=== PATIENT | male | born 1980 | race Caucasian/White ===

== ENCOUNTER 2018-01-12 10:57 | Emergency (ER) | payer MEDICARE, MEDICAID ==
[~2018-01-12 10:57] MED LIST: AMOX-362 PO; ASCO-191 PO; AZI250 PO; BENZ200C38 PO; CEPH500C24 PO; CHOL500016 PO; CLIN300C99 PO; COLACE; D3; FLUINH INH; FLUT16SP20 NS; HYDR-4309 PO; IBUP800T37 PO; LOR10 PO; LOR5 PO; LOR5/325 PO; MAGN100T2 PO; MAGN296S6 PO; MAGN400T36 PO; MAGN400T4 PO; MAGNESIUM; METH-542 PO; MULT-1287 PO; NAPR375T44 PO; OMEG500C7 PO; ONDA4TAB97 PO; PANT20TA27 PO; PANT40TA65 PO; PRED20TA6 PO; PROM-110 PO; TRA50 PO; TRAM-420 PO; TRAM100T22 PO; [UNRECOGNIZED DRUG - CODE] PO
--- NOTE | 2018-01-12 11:13 | ER Report ---
History and Physical Time Seen By MD: 11:04 Hx. of Stated Complaint: patient reports right flank pain since wednesday. he describes a burning and tingling sensation. patient denies difficulty with urination HPI/ROS CHIEF COMPLAINT: Right flank pain HISTORY OF PRESENT ILLNESS: Patient is a 37-year-old male who presents the ED with complaint of right flank pain that he has noted for the past 5 days. He states that the pain has been intermittent. He describes the pain as a burning type of pain into his back. He has noted some nausea but denies any vomiting. He also has had some diarrhea. Patient denies any fever. He has noted some slight dysuria but denies any hematuria or increased urinary frequency. He denies any penile discharge. Patient is not noting chest pain or shortness of breath. He denies any history of kidney stones in the past. He denies any previous abdominal surgeries. Patient states that he woke up with the pain this morning and decided to go to the ER for further evaluation. He was concerned that this may be related to him taking Protonix for the past 6 years. REVIEW OF SYSTEMS: Constitutional: No fever, no chills. Eyes: No discharge. ENT: No sore throat. Cardiovascular: No chest pain, no palpitations. Respiratory: No cough, no shortness of breath. Gastrointestinal: See history of present illness. Genitourinary: See history of present illness. Musculoskeletal: See history of present illness. Skin: No rashes. Neurological: No headache. Allergies: Coded Allergies: benztropine (Verified Allergy, Severe, FREAKS OUT AND GETS HIVES, 09/24/16) acetaminophen (Verified Adverse Reaction, Mild, MAKES HIM SICK TO STOMACH , 09/24/16) hydrocodone (Verified Adverse Reaction, Mild, MAKES HIM SICK TO STOMACH, ) oxycodone (Verified Adverse Reaction, Mild, MAKES HIM SICK TO STOMACH, 09/24) Uncoded Allergies: X RAY DYE (Allergy, Severe, SEIZURE, 06/11/07) ALL PSYCH MEDS (Allergy, Mild, GETS WORSE ON EVERYTHING THEY HAVE TRIED, ) Home Meds Active Scripts Ondansetron Hcl (ZOFRAN) 4 Mg Tablet, 4 MG PO Q8H for Nausea, #15 TAB 0 Refills Prov:HERON ALBRECHT MD 7/2/17 Naproxen (NAPROXEN) 375 Mg Tablet, 375 MG PO TID for PAIN, #21 TAB 0 Refills Prov:HERON ALBRECHT MD 02/21/17 Amoxicillin (AMOXICILLIN) 500 Mg Capsule, 1 CAP PO Q8H for infection, #30 CAPSULE Prov:AVRIL CERVANTES DO 09/24/16 Prednisone (PREDNISONE) 20 Mg Tablet, 20 MG PO QDAY for reduce inflammation, #5 Prov:AVRIL CERVANTES DO 09/24/16 Reported Medications [place]-3 Fatty Acids (FISH OIL) 500 Mg Capsule, 500 MG PO DAILY, CAPSULE 09/24/16 Multivitamin (MEN'S MULTI-VITAMIN) 1 Each Tablet, 1 EACH PO DAILY 05/28/16 Ascorbic Acid (VITAMIN C) 1,000 Mg Tablet, 1000 MG PO DAILY 05/28/16 Cholecalciferol (Vitamin D3) (VITAMIN D3) 5,000 Unit Capsule, 5000 UNIT PO DAILY , CAPSULE 05/28/16 Pantoprazole Sodium (PANTOPRAZOLE SODIUM) 20 Mg Tablet.dr, 20 MG PO QDAY, TAB.SR 05/28/16 Magnesium Oxide (MAGNESIUM OXIDE) 400 Mg Tablet, 400 MG PO QAM 05/28/16 Magnesium Citrate (MAGNESIUM CITRATE) 100 Mg Tablet, 100 MG PO QHS 05/28/16 Fluticasone Propionate (FLOVENT HFA) 110 Mcg Inha, 110 MCG INH PRN 08/15/15 Reviewed Nurses Notes: Yes Old Medical Records Reviewed: Yes Hx Smoking: No Smoking Status: Former Smoker Exposure to Second Hand Smoke?: Yes Hx Substance Use Disorder: No Hx Alcohol Use: No Constitutional Vital Sign - Last 24 Hours 01/12/18 11:01 Temp 97.9 Pulse 77 Resp 20 Pulse Ox 95 O2 Delivery Room Air Physical Exam General Appearance: The patient is alert, has no immediate need for airway protection and no signs of toxicity. Patient appears to be in no acute distress. Eyes: Pupils equal and round no pallor or injection. ENT, Mouth: Mucous membranes are moist. Respiratory: There are no retractions, lungs are clear to auscultation. Cardiovascular: Regular rate and rhythm. Gastrointestinal: No abdominal pain with palpation exam. Normal bowel sounds in all 4 quadrants. No rebound or guarding is present. There is right CVA area tenderness with percussion. Skin: Warm and dry, no rashes. Musculoskeletal: Neck is supple non tender. Extremities are nontender, nonswollen and have full range of motion. DIFFERENTIAL DIAGNOSIS: After history and physical exam differential diagnosis was considered for flank pain including but not limited to musculoskeletal causes, kidney stone, pyelonephritis, shingles, and intra-abdominal causes such as diverticulitis and appendicitis. Medical Decision Making Data Points Result Diagram: 01/12/18 1113 01/12/18 1113 Laboratory Hematology Test 01/12/18 11:00 01/12/18 11:13 Urine Color Yellow Urine Clarity Clear Urine pH 5.0 pH (4.8-9.5) Urine Specific [place] 1.018 Urine Protein Negative mg/dL (NEGATIVE) Urine Glucose (UA) Negative mg/dL (NEGATIVE) Urine Ketones Negative mg/dL (NEGATIVE) Urine Blood Negative (NEGATIVE) Urine Nitrite Negative (NEGATIVE) Urine Bilirubin Negative (NEGATIVE) Urine Urobilinogen Negative mg/dL (0.2-1.9) Urine Leukocyte Esterase Negative (NEGATIVE) Urine RBC None /HPF (0-2/HPF) Urine WBC <1 /HPF (0-5/HPF) Urine Squamous Epithelial Cells None /LPF (</=FEW) Urine Bacteria Negative /HPF (NONE-FEW) Urine Mucus None /HPF (NONE-FEW) Red Blood Count 5.64 M/uL (4.00-5.60) Mean Corpuscular Volume 84.3 fL (80.0-96.0) Mean Corpuscular Hemoglobin 29.7 pg (26.0-33.0) Mean Corpuscular Hemoglobin Concent 35.3 g/dL (32.0-36.0) Red Cell Distribution Width 12.7 % (11.5-14.5) Mean Platelet Volume 8.6 fL (7.2-11.1) Neutrophils (%) (Auto) 62.0 % (39.4-72.5) Lymphocytes (%) (Auto) 24.1 % (17.6-49.6) Monocytes (%) (Auto) 9.6 % (4.1-12.4) Eosinophils (%) (Auto) 3.1 % (0.4-6.7) Basophils (%) (Auto) 1.2 % (0.3-1.4) Nucleated RBC Relative Count (auto) 0.1 /100WBC Neutrophils # (Auto) 3.8 K/uL (2.0-7.4) Lymphocytes # (Auto) 1.5 K/uL (1.3-3.6) Monocytes # (Auto) 0.6 K/uL (0.3-1.0) Eosinophils # (Auto) 0.2 K/uL (0.0-0.5) Basophils # (Auto) 0.1 K/uL (0.0-0.1) Nucleated RBC Absolute Count (auto) 0.01 K/uL Sodium Level 139 mmol/L (137-145) Potassium Level 4.2 mmol/L (3.5-5.0) Chloride Level 103 mmol/L (98-107) Carbon Dioxide Level 25 mmol/L (22-30) Blood Urea Nitrogen 16 mg/dl (9-21) Creatinine 1.10 mg/dl (0.66-1.25) Glomerular Filtration Rate Calc > 60.0 Random Glucose 96 mg/dl (75-110) Calcium Level 9.3 mg/dl (8.4-10.2) Total Bilirubin 0.8 mg/dl (0.2-1.3) Aspartate Amino Transf (AST/SGOT) 28 U/L (0-35) Alanine Aminotransferase (ALT/SGPT) 39 U/L (0-56) Alkaline Phosphatase 89 U/L (0-126) Total Protein 7.7 gm/dl (6.3-8.2) Albumin 4.2 g/dl (3.5-5.0) Lipase 69 U/L (23-300) Chemistry Test 01/12/18 11:00 01/12/18 11:13 Urine Color Yellow Urine Clarity Clear Urine pH 5.0 pH (4.8-9.5) Urine Specific [place] 1.018 Urine Protein Negative mg/dL (NEGATIVE) Urine Glucose (UA) Negative mg/dL (NEGATIVE) Urine Ketones Negative mg/dL (NEGATIVE) Urine Blood Negative (NEGATIVE) Urine Nitrite Negative (NEGATIVE) Urine Bilirubin Negative (NEGATIVE) Urine Urobilinogen Negative mg/dL (0.2-1.9) Urine Leukocyte Esterase Negative (NEGATIVE) Urine RBC None /HPF (0-2/HPF) Urine WBC <1 /HPF (0-5/HPF) Urine Squamous Epithelial Cells None /LPF (</=FEW) Urine Bacteria Negative /HPF (NONE-FEW) Urine Mucus None /HPF (NONE-FEW) White Blood Count 6.1 k/uL (4.5-11.0) Red Blood Count 5.64 M/uL (4.00-5.60) Hemoglobin 16.8 g/dL (14.0-18.0) Hematocrit 47.5 % (42.0-52.0) Mean Corpuscular Volume 84.3 fL (80.0-96.0) Mean Corpuscular Hemoglobin 29.7 pg (26.0-33.0) Mean Corpuscular Hemoglobin Concent 35.3 g/dL (32.0-36.0) Red Cell Distribution Width 12.7 % (11.5-14.5) Platelet Count 250 K/uL (150-450) Mean Platelet Volume 8.6 fL (7.2-11.1) Neutrophils (%) (Auto) 62.0 % (39.4-72.5) Lymphocytes (%) (Auto) 24.1 % (17.6-49.6) Monocytes (%) (Auto) 9.6 % (4.1-12.4) Eosinophils (%) (Auto) 3.1 % (0.4-6.7) Basophils (%) (Auto) 1.2 % (0.3-1.4) Nucleated RBC Relative Count (auto) 0.1 /100WBC Neutrophils # (Auto) 3.8 K/uL (2.0-7.4) Lymphocytes # (Auto) 1.5 K/uL (1.3-3.6) Monocytes # (Auto) 0.6 K/uL (0.3-1.0) Eosinophils # (Auto) 0.2 K/uL (0.0-0.5) Basophils # (Auto) 0.1 K/uL (0.0-0.1) Nucleated RBC Absolute Count (auto) 0.01 K/uL Glomerular Filtration Rate Calc > 60.0 Calcium Level 9.3 mg/dl (8.4-10.2) Total Bilirubin 0.8 mg/dl (0.2-1.3) Aspartate Amino Transf (AST/SGOT) 28 U/L (0-35) Alanine Aminotransferase (ALT/SGPT) 39 U/L (0-56) Alkaline Phosphatase 89 U/L (0-126) Total Protein 7.7 gm/dl (6.3-8.2) Albumin 4.2 g/dl (3.5-5.0) Lipase 69 U/L (23-300) Urinalysis Test 01/12/18 11:00 Urine Color Yellow Urine Clarity Clear Urine pH 5.0 pH (4.8-9.5) Urine Specific [place] 1.018 Urine Protein Negative mg/dL (NEGATIVE) Urine Glucose (UA) Negative mg/dL (NEGATIVE) Urine Ketones Negative mg/dL (NEGATIVE) Urine Blood Negative (NEGATIVE) Urine Nitrite Negative (NEGATIVE) Urine Bilirubin Negative (NEGATIVE) Urine Urobilinogen Negative mg/dL (0.2-1.9) Urine Leukocyte Esterase Negative (NEGATIVE) Urine RBC None /HPF (0-2/HPF) Urine WBC <1 /HPF (0-5/HPF) Urine Squamous Epithelial Cells None /LPF (</=FEW) Urine Bacteria Negative /HPF (NONE-FEW) Urine Mucus None /HPF (NONE-FEW) ED Course/Re-evaluation ED Course Will obtain labs. 01/12/2018 11:40:00 am - discussed all labs with patient. Everything is normal. There is no evidence of hematuria or other change in kidney function. Discussed with him that do not see any reason to do any further testing given his normal labs. He has been resting comfortably in the room since his admission here. He may have a muscle skull pain since he has noticed it is little bit worse with some movements. Decision to Disposition Date: January 12, 2018 Decision to Disposition Time: 11:40 Depart Departure Latest Vital Signs Vital Signs Date Time Temp Pulse Resp B/P (MAP) Pulse Ox O2 Delivery O2 Flow Rate FiO2 01/12/18 11:01 97.9 77 20 95 Room Air Impression: Primary Impression: Right flank pain Condition: Improved Disposition: HOME OR SELF-CARE Referrals: MELANIA EUGENE (PCP) Patient Instructions: Acute Low Back Pain (ED), Flank Pain (ED) Additional Instructions: May take ibuprofen for pain relief as needed. Follow-up with primary care provider in 2-3 days. If having any worsening or concerning symptoms may return to the emergency department. LACI TRIPP PA-C January 12, 2018 11:13
[2018-01-12 11:34] LABS: PLATELET COUNT, AUTOMATED 250 K/uL (150-450)
[2018-01-12 11:44] VITALS: BP 112/72
== END 2018-01-12 11:52 | disposition home or self-care (01) ==
LOC: ER 11:04
DX: R10.9 Unspecified abdominal pain (principal)
CPT/HCPCS: 81001; 82040; 82247; 82310; 82374; 82435; 82565; 82947; 83690; 84075; 84132; 84155; 84295; 84450; 84460; 84520; 85025; 99284

== ENCOUNTER 2018-06-06 11:03 | Emergency (ER) | payer MEDICARE, MEDICAID ==
[~2018-06-06 11:03] MED LIST changes: -HYDR-4309 PO; +HYDR-653 PO
[2018-06-06 11:09] VITALS: BP 125/87
--- NOTE | 2018-06-06 11:11 | ER Report ---
History and Physical Time Seen By MD: 11:11 HPI/ROS CHIEF COMPLAINT: Back pain HISTORY OF PRESENT ILLNESS: 38-year-old male patient presents to emergency room with complaint of back pain. Patient states that he was walking his dog on Wednesday, slipped and twisted. He states that since then he's been having pain to the low back that radiates down the left leg. He states the pain is a burning sensation. He denies any loss of bowel or bladder control. He denies any saddle paresthesia. Patient states he's been taking ibuprofen with no improvement. He denies any leg weakness. REVIEW OF SYSTEMS: Respiratory: No cough, no dyspnea. Cardiovascular: No chest pain, no palpitations. Gastrointestinal: No vomiting, no abdominal pain. Musculoskeletal: As noted above Allergies: Coded Allergies: benztropine (Verified Allergy, Severe, FREAKS OUT AND GETS HIVES, 09/24/16) acetaminophen (Verified Adverse Reaction, Mild, MAKES HIM SICK TO STOMACH, 09/24/16) hydrocodone (Verified Adverse Reaction, Mild, MAKES HIM SICK TO STOMACH, 09/24/16) oxycodone (Verified Adverse Reaction, Mild, MAKES HIM SICK TO STOMACH, 09/24/16) Uncoded Allergies: X RAY DYE (Allergy, Severe, SEIZURE, 06/11/07) ALL PSYCH MEDS (Allergy, Mild, GETS WORSE ON EVERYTHING THEY HAVE TRIED, 06/11/07) Home Meds Active Scripts Cyclobenzaprine Hcl (CYCLOBENZAPRINE HCL) 10 Mg Tablet, 10 MG PO TID PRN for MUSCLE SPASMS, #21 TAB Prov:ANNA RODRIGUEZ 06/06/18 Ondansetron Hcl (ZOFRAN) 4 Mg Tablet, 4 MG PO Q8H for Nausea, #15 TAB 0 Refills Prov:HERON ALBRECHT MD 02/21/17 Naproxen (NAPROXEN) 375 Mg Tablet, 375 MG PO TID for PAIN, #21 TAB 0 Refills Prov:HERON ALBRECHT MD 02/21/17 Amoxicillin (AMOXICILLIN) 500 Mg Capsule, 1 CAP PO Q8H for infection, #30 CAPSULE Prov:AVRIL CERVANTES DO 09/24/16 Prednisone (PREDNISONE) 20 Mg Tablet, 20 MG PO QDAY for reduce inflammation, #5 Prov:AVRIL CERVANTES DO 09/24/16 Reported Medications [place]-3 Fatty Acids (FISH OIL) 500 Mg Capsule, 500 MG PO DAILY, CAPSULE 09/24/16 Multivitamin (MEN'S MULTI-VITAMIN) 1 Each Tablet, 1 EACH PO DAILY 05/28/16 Ascorbic Acid (VITAMIN C) 1,000 Mg Tablet, 1000 MG PO DAILY 05/28/16 Cholecalciferol (Vitamin D3) (VITAMIN D3) 5,000 Unit Capsule, 5000 UNIT PO DAILY, CAPSULE 05/28/16 Pantoprazole Sodium (PANTOPRAZOLE SODIUM) 20 Mg Tablet.dr, 20 MG PO QDAY, TAB.SR 05/28/16 Magnesium Oxide (MAGNESIUM OXIDE) 400 Mg Tablet, 400 MG PO QAM 05/28/16 Magnesium Citrate (MAGNESIUM CITRATE) 100 Mg Tablet, 100 MG PO QHS 05/28/16 Fluticasone Propionate (FLOVENT HFA) 110 Mcg Inha, 110 MCG INH PRN 08/15/15 Past Medical/Surgical History Patient has a past medical history of seizures, tachycardia, migraines, pancreatitis, eosinophilic esophagitis, depression, anxiety, suicide attempts. Patient has a surgical history of abdominal surgery secondary to trauma. Reviewed Nurses Notes: Yes Hx Smoking: No Smoking Status: Former Smoker Exposure to Second Hand Smoke?: Yes Hx Substance Use Disorder: No Hx Alcohol Use: No Constitutional Vital Sign - Last 24 Hours 06/06/18 11:09 Temp 97.7 Pulse 73 Resp 16 B/P (MAP) 125/87 Pulse Ox 95 O2 Delivery Room Air Physical Exam General Appearance: The patient is alert, has no immediate need for airway protection and no current signs of toxicity. ENT: Tympanic membranes are pearly-[place], auditory canals are patent, mucous membranes are moist. Respiratory: Chest is non tender, lungs are clear to auscultation. Cardiac: regular rate and rhythm Gastrointestinal: Abdomen is soft and non tender, no masses, bowel sounds normal. Musculoskeletal: Neck: Neck is supple and non tender. Back: Patient does have tenderness to the lumbar spine, pain seems to worse to the paraspinal muscles to the left. Also has pain that radiates down the SI joint. He is tender at the SI joint. Extremities have full range of motion and are non tender. Skin: No rashes or lesions. DIFFERENTIAL DIAGNOSIS: After history and physical exam differential diagnosis was considered for back pain including but not limited to muscular pain, herniated disc, spine fracture, intra-abdominal causes and urinary tract infection. Medical Decision Making EKG/Imaging Imaging Technique: LUMBAR SPINE 4 VIEWS HISTORY: back pain with radiation down left leg Comparison studies: Lumbar spine radiographs July 22, 2015 FINDINGS: There is no acute fracture. 6 nonrib-bearing lumbar type vertebral bodies are present. There is partial sacralization of the L6 vertebral body. Mild degenerative changes are noted characterized by endplate osteophytosis. These findings are most conspicuous at L2, L5 and L6. IMPRESSION: 1. No acute osseous process. 2. Mild degenerative changes. Report Dictated By: Cheko Price DO at 06/06/2018 12:38 PM Report E-Signed By: Cheko Price DO at 06/06/2018 12:40 PM 3 views sacroiliac joints Indication: Radicular pain Comparison: None available. Findings: There is no acute fracture-dislocation of of the bones of the visualized sacrum and coccyx. The bilateral SI joints are patent. No significant erosive changes identified. IMPRESSION: 1. No acute osseous abnormality of the bilateral SI joints. Report Dictated By: Cheko Price DO at 06/06/2018 12:40 PM Report E-Signed By: Cheko Price DO at 06/06/2018 12:41 PM ED Course/Re-evaluation ED Course Patient is admitted and examined, history and physical were obtained. Differential diagnoses were considered. On examination patient did have some tenderness to the lumbar spine as well as the left paraspinal muscles. X-rays done of the lumbar spine as well as the SI joints. Patient did have some tenderness to the left SI joint. The imaging results were negative. I discussed the findings with the patient. I discussed we will go ahead and discharge patient home with muscle relaxers. I asked if he felt like he needed any pain medication. The patient states the pain medication is never seemed to work for him and he states that he would not like that. We will go ahead and discharge patient home he is to continue taking ibuprofen and Tylenol as needed for pain. Patient verbalized understanding and agreement with plan. Decision to Disposition Date: Jun 06, 2018 Decision to Disposition Time: 13:34 Depart Departure Latest Vital Signs Vital Signs Date Time Temp Pulse Resp B/P (MAP) Pulse Ox O2 Delivery O2 Flow Rate FiO2 06/06/18 11:09 97.7 73 16 125/87 95 Room Air Impression: Primary Impression: Back strain Condition: Improved Disposition: HOME OR SELF-CARE Referrals: MELANIA EUGENE (PCP) New Scripts Cyclobenzaprine Hcl (CYCLOBENZAPRINE HCL) 10 Mg Tablet 10 MG PO TID PRN for MUSCLE SPASMS, #21 TAB Prov: ANNA RODRIGUEZ 06/06/18 Patient Instructions: Low Back Strain (ED) Additional Instructions: Limit activity by pain. Get plenty of rest. Continue with low impact aerobic activity Follow up with your primary care provider in the next week. Return to the ER if condition worsens. Continue taking Ibuprofen as needed for pain. Problem Qualifiers Primary Impression: Back strain Encounter type: initial encounter Qualified Codes: S39.012A - Strain of muscle, fascia and tendon of lower back, initial encounter ANNA RODRIGUEZ Jun 06, 2018 11:11
[2018-06-06] MEDS ORDERED: KETOROLAC 60 MG/2 ML VIAL IM ONE (11:20)
--- NOTE | 2018-06-06 12:43 | RADIOLOGY IMAGING REPORT ---
FACILITY: [facility] - [place] PATIENT NAME: Juan Kaufman : 1980 MR: [id number] V: [id number] EXAM DATE: ORDERING PHYSICIAN: ANNA RODRIGUEZ TECHNOLOGIST: [place] [facility] [place] Juan Kaufman : 1980 Visit/Account:[id number] Date of Sevice: 06/06/2018 Technique: LUMBAR SPINE 4 VIEWS HISTORY: back pain with radiation down left leg Comparison studies: Lumbar spine radiographs July 22, 2015 FINDINGS: There is no acute fracture. 6 nonrib-bearing lumbar type vertebral bodies are present. Ther e is partial sacralization of the L6 vertebral body. Mild degenerative changes are noted characterize d by endplate osteophytosis. These findings are most conspicuous at L2, L5 and L6. IMPRESSION: 1. No acute osseous process. 2. Mild degenerative changes. Report Dictated By: Cheko Price DO at 06/06/2018 12:38 PM Report E-Signed By: Cheko Price DO at 06/06/2018 12:40 PM WSN:[id number]
--- NOTE | 2018-06-06 12:44 | RADIOLOGY IMAGING REPORT ---
FACILITY: [facility] PATIENT NAME: Juan Kaufman : 1980 MR: [id number] V: [id number] EXAM DATE: ORDERING PHYSICIAN: ANNA RODRIGUEZ TECHNOLOGIST: Location: [facility] - [place] Patient: Juan Kaufman : 1980 Visit/Account:[id number] Date of Sevice: 06/06/2018 3 views sacroiliac joints Indication: Radicular pain Comparison: None available. Findings: There is no acute fracture-dislocation of of the bones of the visualized sacrum and coccyx. The bilateral SI joints are patent. No significant erosive changes identified. IMPRESSION: 1. No acute osseous abnormality of the bilateral SI joints. Report Dictated By: Cheko Price DO at 06/06/2018 12:40 PM Report E-Signed By: Cheko Price DO at 06/06/2018 12:41 PM WSN:[id number]
[2018-06-06] MEDS ORDERED: CYCL10TA29 PO (13:31)
== END 2018-06-06 13:40 | disposition home or self-care (01) ==
LOC: ER 11:28
DX: S39.012A Strain of muscle, fascia and tendon of lower back, initial encounter (principal)
CPT/HCPCS: 72120; 72202; 96372; 99284; J1885

== ENCOUNTER → 2018-07-08 | Outpatient (CLI) | payer MEDICARE, MEDICAID ==
[~2018-07-08] MED LIST changes: +CYCL10TA29 PO
[2018-07-08 13:01] LABS: PLATELET COUNT, AUTOMATED 296 K/uL (150-450)
== END ==
LOC: LAB 12:34
PROVIDERS: ATTEND Nurse Practitioner Psychiatric/Mental Health
DX: K29.70 Gastritis, unspecified, without bleeding (principal); K20.0 Eosinophilic esophagitis; F25.9 Schizoaffective disorder, unspecified
CPT/HCPCS: 36415; 82040; 82247; 82310; 82374; 82435; 82565; 82947; 84075; 84132; 84155; 84295; 84443; 84450; 84460; 84520; 85025; 86677